=== PATIENT | male | born 1960 | race Caucasian/White ===

== ENCOUNTER 2019-12-30 09:43 | Outpatient (RCR) | payer BC ==
[~2019-12-30] VITALS: Ht 175 cm; Wt 102.0 kg
[~2019-12-30 09:43] MED LIST: DESV50TA PO; FNT25TD TD; OXYC-188 PO
[2019-12-30] MEDS ORDERED: ROSU10TA28 PO (10:12)
== END 2019-12-30 10:14 | disposition home or self-care (01) ==
LOC: PREOP 09:43
PROVIDERS: ATTEND Internal Medicine
DX: Z01.818 Encounter for other preprocedural examination (principal); Z11.59 Encounter for screening for other viral diseases
CPT/HCPCS: 87635

== ENCOUNTER 2020-01-02 08:57 | Day surgery (SDC) | payer BC ==
[2020-01-02] VITALS (11 sets, daily range): BP systolic 128–172; BP diastolic 4–90
[~2020-01-02] VITALS: Ht 175.3 cm; Wt 102.0 kg
[~2020-01-02 08:57] MED LIST changes: +ROSU10TA28 PO
[2020-01-02] MEDS ORDERED: D5 LR IV SOLUTION 1,000 ML IV ONE (08:59)
[2020-01-02] MEDS ORDERED: D5 LR IV SOLUTION 1,000 ML IV STA (09:02)
[2020-01-02] MEDS ORDERED: MIDAZOLAM 5 MG/5 ML (VERSED) VIAL IV PRN (09:15)
[2020-01-02] MEDS ORDERED: fentaNYL INJECTION 100 MCG/2 ML AMP IVP ONE (09:15)
[2020-01-02] MEDS ORDERED: LIDOCAINE JELLY 2% 6 ML SYRINGE MM PRN (09:15)
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
[2020-01-02] MEDS ORDERED: fentaNYL INJECTION 100 MCG/2 ML AMP ONE (09:41)
[2020-01-02] MEDS ORDERED: LIDOCAINE JELLY 2% 6 ML SYRINGE ONE (09:41)
[2020-01-02] MEDS ORDERED: MIDAZOLAM 5 MG/5 ML (VERSED) VIAL ONE (09:41)
--- NOTE | 2020-01-02 10:39 | Pre-Op Note & Conscious Sedat ---
Pre-Operative Progress Note H&P Reviewed The H&P was reviewed, patient examined and no changes noted. Date H&P Reviewed: January 02, 2020 Time H&P Reviewed: 09:30 Conscious Sedation Pre-Proced ASA Score 2 For ASA 3 and 4: Consider anesthesia and medical clearance. Also, for patients with a history of failed moderate sedation consider anesthesia. Airway Lungs Heart ASA score ASA 1: a normal healthy patient ASA 2: a patient with a mild systemic disease (mid diabetes, controlled hypertension, obesity ASA 3: a patient with a severe systemic disease that limits activity (angina, COPD, prior Myocardial infarction) ASA 4: a patient with an incapacitating disease that is a constant threat to life (CHF, renal failure) ASA 5: a moribund patient not expected to survive 24 hrs. (ruptured aneurysm) ASA 6: a declared brain- patient whose organs are being harvested. For emergent operations, add the letter E after the classification Mallampati Classification Grade 2 Sedation Plan Analgesia, Amnesia, Plan communicated to team members, Discussed options with patient/fam, Discussed risks with patient/fam The patient is an appropriate candidate to undergo the planned procedure, sedation, and anesthesia. The patient immediately re-assessed prior to indication. FREDDY CHOI MD January 02, 2020 10:39
--- NOTE | 2020-01-02 16:47 | OPERATIVE REPORT ---
DATE OF SERVICE: COLONOSCOPY SUMMARY INDICATION FOR THE PROCEDURE: Surveillance colonoscopy due to history of colon polyps. DESCRIPTION OF PROCEDURE: The patient was placed in the left lateral decubitus position. Prior to undergoing colonoscopy, digital rectal evaluation was performed. Anal sphincter tone was normal. Perianal reflexes intact. Prostate is mildly enlarged, anodular and nontender to digital inspection. No abnormalities were noted on digital inspection of anal canal or distal rectal vault. The colonoscope was then inserted into the rectum and under direct visualization advanced to cecum. The cecum was identified by identification of ileocecal valve and cecal strap. Photographic documentation was obtained. Careful inspection was made as the colonoscope withdrawn. The patient tolerated the procedure well. FINDINGS: There was no evidence for internal or external hemorrhoids. Present in the mid rectum was a diminutive 2 mm hyperplastic-appearing polyp. It was biopsied and ablated and submitted for histopathology. The remainder of the rectum, sigmoid colon, descending colon, splenic flexure, transverse colon, hepatic flexure, ascending colon and cecum were unremarkable without evidence for diverticular disease. ASSESSMENT: 1. Diminutive hyperplastic appearing polyp was removed from the mid rectum; this was otherwise normal colonoscopy to the cecum. The prostate was mildly enlarged and anodular to digital inspection. No other abnormalities were noted. We will advocate consideration for repeat screening colonoscopy in 10 years. Job ID: [id number] DocumentID: [id number] Dictated Date: 01/02/2020 11:39:48 Charging Manipulator Date: 01/02/2020 16:46:09 Dictated By: FREDDY CHOI MD MTDD
== END 2020-01-02 11:20 | disposition home or self-care (01) ==
LOC: ENDO 08:57
PROVIDERS: ATTEND Internal Medicine
DX: Z12.11 Encounter for screening for malignant neoplasm of colon (principal); K62.1 Rectal polyp; N40.0 Benign prostatic hyperplasia without lower urinary tract symptoms; G47.33 Obstructive sleep apnea (adult) (pediatric); M16.0 Bilateral primary osteoarthritis of hip; F32.9 Major depressive disorder, single episode, unspecified; Z99.89 Dependence on other enabling machines and devices; Z86.010 Personal history of colon polyps; Z82.62 Family history of osteoporosis

== ENCOUNTER → 2020-09-30 | Outpatient (CLI) | payer BC | LOC: LABNPT 06:23 | PROVIDERS: ATTEND Internal Medicine | DX: U07.1 COVID-19 (principal) | CPT/HCPCS: 87635 ==

== ENCOUNTER 2021-09-26 14:25 | Emergency (ER) | payer BC ==
[~2021-09-26] VITALS: Ht 175 cm; Wt 97.5 kg
[2021-09-26 15:39] LABS: BASOPHILS % (AUTO) 0 % (0-10); EOSINOPHILS # (AUTO) 0.1 10^3/uL (0.0-0.3); EOSINOPHILS % (AUTO) 1 % (0-10); HEMATOCRIT 42 % (40-54); HEMOGLOBIN 14.3 g/dL (13.3-17.7); LYMPHOCYTES # (AUTO) 1.7 X 10^3 (1.0-4.0); LYMPHOCYTES % (AUTO) 16 % (12-44); MEAN CORPUSCULAR HEMOGLOBIN 31 pg (25-34); MEAN CORPUSCULAR HGB CONC 34 g/dL (32-36); MEAN CORPUSCULAR VOLUME 91 fL (80-99); MEAN PLATELET VOLUME 10.2 fL (9.0-12.2); MONOCYTES # (AUTO) 0.9 X 10^3 (0.0-1.0); MONOCYTES % (AUTO) 8 % (0-12); NEUTROPHILS # (AUTO) 8.3 X 10^3 (1.8-7.8); NEUTROPHILS % (AUTO) 76 % (42-75); PLATELET COUNT 264 10^3/uL (130-400); WHITE BLOOD COUNT 10.9 10^3/uL (4.3-11.0)
[2021-09-26 15:42] LABS: ALBUMIN 4.5 GM/DL (3.2-4.5)
[2021-09-26 15:43] LABS: CALCIUM 9.5 MG/DL (8.5-10.1)
[2021-09-26 15:45] LABS: TOTAL PROTEIN 7.4 GM/DL (6.4-8.2)
[2021-09-26 15:46] LABS: BILIRUBIN,TOTAL 0.3 MG/DL (0.1-1.0)
[2021-09-26 15:48] LABS: CREATININE SERUM 0.95 MG/DL (0.60-1.30)
--- NOTE | 2021-09-26 16:02 | ED General ---
General Chief Complaint: Respiratory Problems Stated Complaint: DIFFICULTY BREATHING/CONGESTION/COUGH/BODYACHES Nursing Triage Note: PT PRESENTS TO ED VIA POV WITH COMPLAINTS OF COLD OVER THE WEEKEND AND INCREASED BILAT LEG WEAKNESS AND SOA STARTING TODAY. Source of Information: Patient Exam Limitations: No Limitations History of Present Illness Date Seen by Provider: Sep 26, 2021 Time Seen by Provider: 15:37 Allergies and Home Medications Allergies Coded Allergies: No Known Drug Allergies (Unverified , 12/30/19) Patient Home Medication List Desvenlafaxine Succinate (Pristiq ER) 50 Mg Tab.er.24h, 50 MG PO DAILY, (Re ported) Entered as Reported by: DAVID HUYNH on 12/30/19 0940 Rosuvastatin Calcium (Rosuvastatin Calcium) 10 Mg Tablet, 10 MG PO DAILY, (Reported) Entered as Reported by: DAVID HUYNH on 12/30/19 1012 Past Gvxddyk-Awqwqz-Poswul Hx Patient Social History Tobacco Use?: No Substance use?: No Alcohol Use?: Yes Alcohol Frequency: Daily Immunizations Up To Date Tetanus Booster (TDap): Less than 5yrs PED Vaccines UTD: Yes COVID19 Vaccine Treasurer: MODERNA Seasonal Allergies Seasonal Allergies: No Past Medical History Surgery/Hospitalization HX: PMH: SUSPECTED ALS, ANXIETY, DEPRESSION SX: VASTECTOMY, TONSILECTOMY. Surgeries: Yes Vasectomy Respiratory: No Cardiac: Yes High Cholesterol Neurological: No Reproductive Disorders: No Genitourinary: No Gastrointestinal: No Musculoskeletal: No Endocrine: No HEENT: No (GLASSES) Loss of Vision: Denies Hearing Impairment: Denies Cancer: Yes (BASAL CELL) Skin Psychosocial: Yes Depression Integumentary: No Blood Disorders: No Adverse Reaction/Blood Tranf: No (N/A) Family Medical History Cardiovascular disease 19 MOTHER Hypertension 19 MOTHER Physical Exam Vital Signs Vital Signs - First Documented 09/26/21 14:45 Temp 36.6 Pulse 62 Resp 14 B/P (MAP) 193/89 (123) Pulse Ox 97 Capillary Refill : Less Than 3 Seconds Height, Weight, BMI Height: 5'9.00" Weight: 221lbs. 10.0oz. 100.760902uq; 31.00 BMI Method:Stated Progress/Results/Core Measures Suspected Sepsis SIRS Temperature: Pulse: 62 Respiratory Rate: 14 Laboratory Tests 09/26/21 14:52: White Blood Count 10.9 Blood Pressure 193 /89 Mean: 123 Laboratory Tests 09/26/21 14:52: Creatinine 0.95, Platelet Count 264, Total Bilirubin 0.3 Results/Orders Lab Results Laboratory Tests Test 09/26/21 14:52 09/26/21 15:50 Range/Units White Blood Count 10.9 4.3-11.0 10^3/uL Red Blood Count 4.68 4.30-5.52 10^6/uL Hemoglobin 14.3 13.3-17.7 g/dL Hematocrit 42 40-54 % Mean Corpuscular Volume 91 80-99 fL Mean Corpuscular Hemoglobin 31 25-34 pg Mean Corpuscular Hemoglobin Concent 34 32-36 g/dL Red Cell Distribution Width 12.5 10.0-14.5 % Platelet Count 264 130-400 10^3/uL Mean Platelet Volume 10.2 9.0-12.2 fL Immature Granulocyte % (Auto) 0 % Neutrophils (%) (Auto) 76 H 42-75 % Lymphocytes (%) (Auto) 16 12-44 % Monocytes (%) (Auto) 8 0-12 % Eosinophils (%) (Auto) 1 0-10 % Basophils (%) (Auto) 0 0-10 % Neutrophils # (Auto) 8.3 H 1.8-7.8 X 10^3 Lymphocytes # (Auto) 1.7 1.0-4.0 X 10^3 Monocytes # (Auto) 0.9 0.0-1.0 X 10^3 Eosinophils # (Auto) 0.1 0.0-0.3 10^3/uL Basophils # (Auto) 0.0 0.0-0.1 10^3/uL Immature Granulocyte # (Auto) 0.0 0.0-0.1 10^3/uL D-Dimer 0.38 0.00-0.49 UG/ML Sodium Level 139 135-145 MMOL/L Potassium Level 4.0 3.6-5.0 MMOL/L Chloride Level 104 98-107 MMOL/L Carbon Dioxide Level 24 21-32 MMOL/L Anion Gap 11 5-14 MMOL/L Blood Urea Nitrogen 12 7-18 MG/DL Creatinine 0.95 0.60-1.30 MG/DL Estimat Glomerular Filtration Rate 92 BUN/Creatinine Ratio 13 Glucose Level 108 H 70-105 MG/DL Calcium Level 9.5 8.5-10.1 MG/DL Corrected Calcium 9.1 8.5-10.1 MG/DL Total Bilirubin 0.3 0.1-1.0 MG/DL Aspartate Amino Transf (AST/SGOT) 23 5-34 U/L Alanine Aminotransferase (ALT/SGPT) 50 0-55 U/L Alkaline Phosphatase 101 40-136 U/L Total Protein 7.4 6.4-8.2 GM/DL Albumin 4.5 3.2-4.5 GM/DL My Orders Orders - SANDRINE RAMIREZ APRN Coronavirus Sars-Cov-2 So 2019 (09/26/21 15:28) Cbc With Automated Diff (09/26/21 15:28) Comprehensive Metabolic Panel (09/26/21 15:28) Chest 1 View, Ap/Pa Only (09/26/21 15:28) Fibrin Degradation Products (09/26/21 15:28) Ekg Tracing (09/26/21 15:33) Vital Signs/I&O 09/26/21 14:45 Temp 36.6 Pulse 62 Resp 14 B/P (MAP) 193/89 (123) Pulse Ox 97 Capillary Refill : Less Than 3 Seconds Blood Pressure Mean: 123 Departure Impression Primary Impression: Anxiety about health Disposition: 01 HOME, SELF-CARE Condition: Improved Departure-Patient Inst. Decision time for Depature: 17:07 Referrals: FREDDY CHOI MD (PCP/Family) Primary Care Physician Patient Instructions: Anxiety, Adult (DC) Add. Discharge Instructions: Plan: 1. Follow up with Dr. Choi as needed. 2. Continue your Ativan as needed for anxiety. You can also place ice in the palms of your hands to help prevent panic attack. 3. Return to ER for any new, concerning, or worsening symptoms. All discharge instructions reviewed with patient and/or family. Voiced understanding. SANDRINE RAMIREZ APRN Sep 26, 2021 16:02
--- NOTE | 2021-09-26 16:51 | Diagnostic Imaging Report ---
EXAMINATION: Chest 1 view HISTORY: SOA COMPARISON: 03/25/2014 FINDINGS: Heart size and pulmonary vasculature are normal. The lungs are clear without consolidation, pleural effusion, or pneumothorax. Degenerative changes of the thoracic spine. Osseous structures are otherwise intact. IMPRESSION: 1. No acute radiographic abnormality in the chest. Dictated by: Dictated on workstation # [id number]
[2021-09-26 17:28] VITALS: BP 150/82
== END 2021-09-26 17:25 | disposition home or self-care (01) ==
LOC: EDUNIT# 14:25 → ER 14:28
DX: F41.9 Anxiety disorder, unspecified (principal); F32.A Depression, unspecified; E78.00 Pure hypercholesterolemia, unspecified; Z79.899 Other long term (current) drug therapy; Z20.822 Contact with and (suspected) exposure to COVID-19
CPT/HCPCS: 36415; 71045; 80053; 85025; 85379; 87635; 93005